=== PATIENT | female | born 1960 | race Caucasian/White ===

== ENCOUNTER 2018-11-18 13:50 | Emergency (ER) | payer BC, OTHER ==
--- NOTE | 2018-11-18 15:32 | ED Physician Documentation ---
History of Present Illness - Stated complaint Stated Complaint: FACE SWELLING - Chief complaint Chief Complaint: Allergic Rx - History obtained from History obtained from: Patient - Additonal information Additional information: Patient is a 58-year-old female presenting with concerns of facial swelling, particularly periorbital swelling, is generalized viral symptoms including chills without fever, nasal congestion, rhinorrhea, general malaise and muscle aches over the past 2 days. Patient is on lisinopril and does have concern for possible reaction to such. Patient adamantly denies other known allergies, new exposures, new foods, new medications. Patient denies any respiratory complaints. No other improving or worsening factors noted. Review of Systems Constitutional: reports: Chills Nose: reports: Rhinorrhea / runny nose, Congestion Respiratory: denies: Dyspnea PD PAST MEDICAL HISTORY - Past Medical History Cardiovascular: Hypertension - Present Medications Home Medications: Ambulatory Orders Medication Instructions Recorded Confirmed Citalopram [CeleXA] 10 mg PO DAILY 11/18/18 11/18/18 Lisinopril 5 mg PO 11/18/18 buPROPion [Wellbutrin Sr] 100 mg PO BID 11/18/18 11/18/18 busPIRone [Buspar] 15 mg PO BID 11/18/18 11/18/18 predniSONE [Deltasone] 10 mg PO [id number] #42 tab 11/18/18 - Allergies Allergies/Adverse Reactions: Allergies Allergy/AdvReac Type Severity Reaction Status Date / Time No Known Drug Allergies Allergy Verified 11/18/18 14:09 PD ED PE NORMAL - Vitals Vital signs reviewed: Yes - General General: Alert and oriented X 3, No acute distress, Well developed/nourished - HEENT HEENT: Atraumatic, Moist mucous membranes, Pharynx benign, Other (Mild periorbital swelling bilaterally without ecchymosis. No intraoral swelling or abnormalities noted.) - Respiratory Respiratory: No respiratory distress, Clear bilaterally - Abdomen Abdomen: Soft, Non tender, Non distended - Derm Derm: Normal color, Warm and dry, No rash - Extremities Extremities: No deformity, No tenderness to palpate - Neuro Neuro: Alert and oriented X 3, No motor deficit, No sensory deficit - Psych Psych: Normal mood, Normal affect Results - Vitals Vitals: Vital Signs - 24 hr 11/18/18 11/18/18 14:06 15:33 Temperature 36.6 C 37.1 C Heart Rate 82 71 Respiratory 20 20 Rate Blood Pressure 118/84 H 113/88 H O2 Saturation 99 98 Oxygen O2 Source Room air PD MEDICAL DECISION MAKING - ED course Complexity details: considered differential, d/w patient ED course: Patient presenting with multiple concerns. Feel that she is likely experiencing a viral illness which is contributing to her multiple complaints including her periorbital swelling. Also feel that she could be having an environmental allergic reaction. Do not feel this is likely related to her lisinopril as she has no lip or tongue swelling, but discussed cessation of lisinopril and changing to medication such as losartan. Directed to to her primary care provider to discuss change of medication. Do not find evidence of anaphylaxis, urticaria, rash, or other concerns on exam. Discussed supportive cares for likely viral illness, as well as [id number] medications to further treat possible allergic components such as antihistamines. Patient is also amenable to receiving steroid taper prescription. However, feel these may not be particularly helpful as again feel that her symptoms are likely viral in nature. Also advised patient that these medications will not make a significant difference if lisinopril was the culprit as it will take several days for lisinopril to process out of her system and her symptoms to improve. Discussed other strict return precautions and appropriate follow-up. Patient voiced understanding and is comfortable with discharge plan. Departure - Departure Disposition: 01 Home, Self Care Clinical Impression: Viral illness Allergic reaction Qualifiers: Encounter type: initial encounter Qualified Code(s): T78.40XA - Allergy, unspecified, initial encounter Condition: Good Instructions: ED Allergic Reaction General Other Follow-Up: Kwadwo Horowitz MD [Primary Care Provider] - Within 3 Days Prescriptions: predniSONE [Deltasone] 10 mg PO [id number] #42 tab Comments: May use steroids as prescribed to help dampen allergic reaction symptoms. May also use other zlzq-sdp-awqyjad medications including Pepcid, Nexium, Benadryl as instructed to help with allergic symptoms. Please stop taking lisinopril and follow-up with your primary care physician in the next 1 to 2 days to discuss reaction and possibly switching to different medication such as losartan. Return to ED sooner if experience worsening symptoms or you have other concerns.
[2018-11-18 15:36] VITALS: BP 113/88
== END 2018-11-18 16:16 | disposition home or self-care (01) ==
LOC: ED 13:50
DX: B34.9 Viral infection, unspecified (principal); T78.40XA Allergy, unspecified, initial encounter; X58.XXXA Exposure to other specified factors, initial encounter; I10 Essential (primary) hypertension
CPT/HCPCS: 99283

== ENCOUNTER 2020-03-29 13:53 | Outpatient (CLI) | payer OTHER ==
--- NOTE | 2020-04-07 08:19 | Mammography Report ---
BILATERAL DIGITAL SCREENING MAMMOGRAM 3D/2D: 03/29/2020 CLINICAL: Routine screening. Comparison is made to exam dated: 12/26/2017 mammogram - [facility]. The tis eddie of both breasts is extremely dense, which lowers the sensitivity of mammography. No significant masses, calcifications, or other findings are seen in either breast. There has been no significant interval change. IMPRESSION: NEGATIVE There is no mammographic evidence of malignancy. A 1 year screening mammogram is recommended. This exam was interpreted at Station ID: [id number]. NOTE: For mammograms, a report in lay terms will be sent to the patient. Approximately 15% of breast malignancies will not be visualized mammographically. In the management of a palpable breast mass, a negative mammogram must not discourage biopsy of a clinically suspicious lesion. Electronically Signed By: Caio Duque M.D. [facility] [place]:04/07/2020 07:45:26 ACR BI-RADS Category 1: Negative 3341F PARENCHYMAL PATTERN: (VD) - The breast(s) demonstrate(s) extremely dense parenchyma, limiting the sen sitivity of mammography. BI-RADS CATEGORY: (1) - 1 RECOMMENDATION: (ANNUAL) - Recommend routine annual screening mammography. [id number] 1 year screening LATERALITY: (B)
== END 2020-03-29 13:54 | disposition home or self-care (01) ==
LOC: DI 13:53
DX: Z12.31 Encounter for screening mammogram for malignant neoplasm of breast (principal)
CPT/HCPCS: 77063; 77067

== ENCOUNTER 2020-09-13 17:08 | Outpatient (CLI) | payer OTHER | END 2020-09-13 17:09 | disposition home or self-care (01) | LOC: COV 17:08 | PROVIDERS: ATTEND Family Medicine | DX: Z20.822 Contact with and (suspected) exposure to COVID-19 (principal) ==

== ENCOUNTER 2020-12-30 08:00 | Outpatient (CLI) | payer OTHER ==
--- NOTE | 2020-12-30 16:48 | XRAY Report ---
PROCEDURE: Foot 3 View LT INDICATIONS: CONTUSION OF LEFT FOOT TECHNIQUE: 3 views of the foot were acquired. COMPARISON: None FINDINGS: Bones: No fractures or dislocations. No suspicious bony lesions. Mild joint space narrowing and pe riarticular osteophyte formation at the first metatarsophalangeal joint, indicating osteoarthritis. Soft tissues: No tibiotalar joint effusion. Achilles tendon appears normal. IMPRESSION: First metatarsophalangeal joint osteoarthritis. No acute fracture. No osseous lesion. If symptoms and /or clinical suspicion for pathology continue, further assessment with repeat plain films, or advance d imaging (e.g., CT, MRI, or bone scan) is recommended for further assessment. Reviewed by: Tim James MD on 12/30/2020 3:47 PM TER[facility] Approved by: Tim James MD on 12/30/2020 3:47 PM TERESA Station ID: [id number]
== END 2020-12-30 23:59 | disposition home or self-care (01) ==
LOC: DI.S 08:00
PROVIDERS: ATTEND Emergency Medicine
DX: M19.032 Primary osteoarthritis, left wrist (principal)

== ENCOUNTER 2021-04-20 08:00 | Outpatient (CLI) | payer OTHER ==
--- NOTE | 2021-04-20 16:40 | XRAY Report ---
PROCEDURE: Foot 3 View LT INDICATIONS: PAIN IN LEFT FOOT TECHNIQUE: 3 views of the foot were acquired. COMPARISON: 12/30/2020 FINDINGS: Bones: Minimally displaced fracture involving fifth metatarsal base is seen near since previous study . Midfoot and forefoot joint osteoarthritic changes are seen. No suspicious bony lesions. Soft tissues: No tibiotalar joint effusion. Achilles tendon appears normal. IMPRESSION: Minimally displaced fifth metatarsal base fracture. Midfoot and forefoot joint osteoarthritis more pr ominent in great toe. Reviewed by: Carlos Morrell MD on 04/20/2021 4:39 PM PST Approved by: Carlos Morrell MD on 04/20/2021 4:39 PM PST Station ID: [id number]
== END 2021-04-20 23:59 | disposition home or self-care (01) ==
LOC: DI.S 08:00
PROVIDERS: ATTEND Physician Assistant
DX: S92.352A Displaced fracture of fifth metatarsal bone, left foot, initial encounter for closed fracture (principal)

== ENCOUNTER 2021-06-07 14:01 | Outpatient (CLI) | payer OTHER ==
--- NOTE | 2021-06-07 17:10 | XRAY Report ---
PROCEDURE: Foot 3 View LT INDICATIONS: NONDISPLACED FX OF L 5TH METATARSAL TECHNIQUE: 3 views of the foot were acquired. COMPARISON: 04/20/2021 and 12/30/2020 FINDINGS: Bones: Slightly displaced fracture through base of fifth metatarsal bone is again seen extending to f ifth TMT joint space. No new fracture or dislocation is seen. Persistent up to 2 mm diastases at frac ture site is seen. Subacute to chronic-appearing fracture involving medial aspect of fifth proximal p halangeal base is again seen and unchanged. No new fracture or dislocation. No suspicious bony lesion s. Soft tissues: No tibiotalar joint effusion. Achilles tendon appears normal. IMPRESSION: Stable slightly displaced fractures involving fifth metatarsal base and the fifth proximal phalangeal base as above not significantly changed from prior study. No new fracture or dislocation. Reviewed by: Carlos Morrell MD on 06/07/2021 5:08 PM PST Approved by: Carlos Morrell MD on 06/07/2021 5:08 PM PST Station ID: [id number]
== END 2021-06-07 23:59 | disposition home or self-care (01) ==
LOC: DI.N 14:01
PROVIDERS: ATTEND Physician Assistant
DX: S92.355D Nondisplaced fracture of fifth metatarsal bone, left foot, subsequent encounter for fracture with routine healing (principal)

== ENCOUNTER 2021-08-15 08:18 | Outpatient (CLI) | payer OTHER ==
--- NOTE | 2021-08-15 09:07 | DEXA Report ---
PROCEDURE: Dexa Spine and/or Hip INDICATIONS: POST MENOPAUSAL TECHNIQUE: Dual energy x-ray absorptiometry (DXA) was performed on a [employer] System. Regions measur ed are the AP Spine, femoral neck, and if needed forearm. COMPARISON: None. FINDINGS: Lumbar Spine: Bone Mineral Density 0.972 g/cm/cm,T score -1.7. Left Hip: Bone Mineral Density 0.71 g/cm/cm,T score -1.8. Left Femoral Neck: Bone Mineral Density 0.648 g/cm/cm, T score -2.8. (T score greater or equal to -1.0: NORMAL) (T score from -1.1 to -2.4: OSTEOPENIA) (T score less than or equal to -2.5 to: OSTEOPOROSIS) Impression: Osteoporosis. Patients with diagnosis of osteoporosis or osteopenia should have regular bone mineral density assess ment. For those eligible for Medicare, routine testing is allowed once every 2 years. Testing frequ ency can be increased for patients who have rapidly progressing disease or for those who are receivin g medical therapy to restore bone mass. Reviewed by: Carlos Morrell MD on 08/15/2021 9:05 AM PDT Approved by: Carlos Morrell MD on 08/15/2021 9:05 AM PDT Station ID: [id number]
[2021-08-15 09:37] LABS: BASOPHILS % (AUTO) 0.7 %; EOSINOPHILS # (AUTO) 0.2 10^3/uL (0.0-0.7); EOSINOPHILS % (AUTO) 4.6 %; HCT - HEMATOCRIT 37.4 % (37.0-47.0); LYMPHOCYTES # (AUTO) 1.2 10^3/uL (1.5-3.5); LYMPHOCYTES % (AUTO) 29.1 %; MEAN CORPUSCULAR HEMOGLOBIN 35.1 pg (27.0-31.0); MEAN CORPUSCULAR HGB CONC 34.8 g/dL (32.0-36.0); MEAN CORPUSCULAR VOLUME 101.1 fL (81.0-99.0); MEAN PLATELET VOLUME 9.5 fL (7.9-10.8); MONOCYTES # (AUTO) 0.4 10^3/uL (0.0-1.0); MONOCYTES % (AUTO) 9.9 %; NEUTROPHILS # (AUTO) 2.3 10^3/uL (1.5-6.6); NEUTROPHILS % (AUTO) 55.5 %; PLT - PLATELET COUNT 229 10^3/uL (130-450); RED CELL DISTRIBUTION WIDTH 12.3 % (12.0-15.0); WHITE BLOOD COUNT 4.2 x10^3/uL (4.8-10.8)
[2021-08-15 09:55] LABS: ALBUMIN 4.1 g/dL (3.2-5.5); ALBUMIN/GLOBULIN RATIO 1.6 (1.0-2.2); ALKALINE PHOSPHATASE 46 IU/L (42-121); ALT ALANINE AMINOTRANSFERASE 21 IU/L (10-60); AST ASPARTATE AMINOTRANSFERASE 25 IU/L (10-42); BILIRUBIN,TOTAL 0.6 mg/dL (0.2-1.0); BUN - BLOOD UREA NITROGEN 10 mg/dL (6-20); CALCIUM 9.3 mg/dL (8.5-10.3); CARBON DIOXIDE - CO2 25 mmol/L (21-32); CHLORIDE 103 mmol/L (101-111); CHOL/HDL RATIO 2.9 (<4.4); CHOLESTEROL 309 mg/dL; CREATININE 0.7 mg/dL (0.4-1.0); GFR - MDRD 85 (>89); GLUCOSE 99 mg/dL (70-100); HDL CHOLESTEROL 108 mg/dL; LDL CHOLESTEROL,CALCULATED 189 mg/dL; LDL/HDL RATIO 1.8 (<4.4); POTASSIUM 3.9 mmol/L (3.5-5.0); SODIUM 138 mmol/L (135-145); TOTAL PROTEIN 6.6 g/dL (6.7-8.2); TRIGLYCERIDES 61 mg/dL; VLDL CHOLESTEROL 12 mg/dL
== END 2021-08-15 08:19 | disposition home or self-care (01) ==
LOC: DI 08:18
PROVIDERS: ATTEND Internal Medicine
DX: Z78.0 Asymptomatic menopausal state (principal); M81.0 Age-related osteoporosis without current pathological fracture; Z87.81 Personal history of (healed) traumatic fracture; Z13.220 Encounter for screening for lipoid disorders
CPT/HCPCS: 36415; 80053; 80061; 83721; 83970; 85025

== ENCOUNTER 2022-02-23 14:48 | Outpatient (CLI) | payer OTHER | END 2022-02-23 14:49 | disposition home or self-care (01) | LOC: LAB 14:48 | PROVIDERS: ATTEND Internal Medicine Endocrinology, Diabetes & Metabolism | DX: M81.0 Age-related osteoporosis without current pathological fracture (principal) | CPT/HCPCS: 81599; 82306; 82523; 82570 ==

== ENCOUNTER 2022-03-28 17:38 | Outpatient (CLI) | payer OTHER | END 2022-03-28 17:39 | disposition home or self-care (01) | LOC: LAB 17:38 | PROVIDERS: ATTEND Internal Medicine Endocrinology, Diabetes & Metabolism | DX: M81.0 Age-related osteoporosis without current pathological fracture (principal) | CPT/HCPCS: 81599; 82306; 82523 ==